=== PATIENT | female | born 1955 | race Caucasian/White ===

== ENCOUNTER 2019-05-03 00:58 | Inpatient (IN) | payer OTHER ==
[~2019-05-03] VITALS: Ht 157.5 cm; Wt 74.9 kg
[2019-05-03 01:15] LABS: Basophils # (auto) 0.1 uL; Eosinophils # (auto) 0.3 uL; Eosinophils % (auto) 2.4 % (0.0-7.0); Hematocrit 47.4 % (36.0-46.0); Hemoglobin 16.1 g/dL (12.2-16.2); Lymphocytes # (auto) 2.9 uL; Lymphocytes % (auto) 21.9 % (10.0-50.0); Mean Corpuscular Hemoglobin 32.2 pg (28.0-32.0); Mean Corpuscular Hgb Conc. 33.9 g/dL (32.0-36.0); Monocytes # (auto) 0.9 uL; Monocytes % (auto) 6.6 % (0.0-12.0); Neutrophils % (auto) 68.1 % (37.0-80.0); Platelet Count (auto) 214 10^3/uL (140-450); Red Blood Cells 4.99 10^6/uL (4.0-5.20); Red Cell Distribution Width 13.1 % (11.8-14.3); White Blood Cell 13.2 10^3/uL (4.4-10.8)
[2019-05-03 01:35] LABS: Albumin 4.1 g/dL (3.4-5.0); Calcium 10.1 mg/dL (8.5-10.1); Potassium 3.7 mmol/L (3.5-5.1)
[2019-05-03 01:41] LABS: Bilirubin, Total 0.9 mg/dL (0.2-1.0); Total Protein 7.8 g/dL (6.4-8.2)
[2019-05-03] MEDS ORDERED: MORPHINE SULFATE 4 MG/ML SYR/VIAL IV ONE (03:15)
[2019-05-03] MEDS ORDERED: ONDANSETRON HCL 4 MG/2 ML VIAL IV ONE (03:15)
[2019-05-03] MEDS ORDERED: PIPERACILLIN-TAZOB 3.375GM 100 ML IV ONE (04:15)
[2019-05-03] MEDS ORDERED: SODIUM CHLORIDE 0.9% 500 ML IV ONE (05:00)
[2019-05-03] MEDS ORDERED: MORPHINE SULF INJ 2 MG/ML SYRINGE 1ML IV PRN (05:15)
[2019-05-03] MEDS ORDERED: NITROGLYCERIN 0.4 MG SL TAB SL PRN (05:15)
[2019-05-03] MEDS ORDERED: hydrALAZINE HCL 20 MG/ML VL IV PRN (05:15)
[2019-05-03] MEDS: SODIUM CHLORIDE 0.9% 1,000 ML IV SCH ×2 (05:37→16:22)
[2019-05-03] MEDS: ONDANSETRON HCL 4 MG/2 ML VIAL IV PRN ×2 (05:47→12:20)
[2019-05-03] MEDS: MORPHINE SULFATE 4 MG/ML SYR/VIAL IV PRN ×2 (07:44→12:20)
[2019-05-03] MEDS ORDERED: GASTROGRAFIN 120 ML SOL ONE (07:59)
[2019-05-03 10:00] VITALS: BP 140/92
[2019-05-03] MEDS ORDERED: PANTOPRAZOLE 40 MG/10 ML VIAL INJ IV SCH (10:00)
--- NOTE | 2019-05-03 10:00 | NUR ---
Telemetry admit from ER [facility] admitted to Telemetry unit after SBAR received. Patient oriented to ANIVAL ESQUIVEL, primary RN, unit, room, bed, and unit policies regarding patient care and visiting hours. Patient now on continuous telemetry monitoring, tele box # [id number] and telemetry reading on arrival to unit is . Patient placed on bedside oxygen, weighed by bed scale and encouraged to call if they need something. All questions and concerns addressed, patient verbalized understanding.
--- NOTE | 2019-05-03 12:00 | NUR ---
Dr. Renee at bedside.
[2019-05-03 13:14] VITALS: BP 128/82
--- NOTE | 2019-05-03 16:56 | NUR ---
Dr. Thompson at bedside.
--- NOTE | 2019-05-03 17:00 | NUR ---
Per Dr. Thompson as soon as small bowel series report there in a computer, need to call Dr. Garcia for a report. Will endorse to night custodian.
[2019-05-03 17:04] VITALS: BP 134/80
--- NOTE | 2019-05-03 18:03 | NUR ---
Dr. Garcia paged regarding small bowel series x-ray resulted. Awaiting to call back.
--- NOTE | 2019-05-03 19:16 | NUR ---
Received a call from Jared STOREY with new orders, noted and carried out.
--- NOTE | 2019-05-03 19:30 | NUR ---
Opening Shift Note Assumed care of patient, awake and alert. Family at bedside. New orders for LIS to NG carried out and new IV fluids infusing. IV patent to left AC. Very pleasant. No S/S of distress/SOB. Pain 3/10 to abdomen, tolerable per patient.Slight anxiety noted regarding mass on kidney. Following up with Dr. head outpatient Instructed on POC and to call for assist PRN, will continue to monitor for changes Q1hr and PRN.
[2019-05-03] MEDS: SOD CHL 0.9%/ KCL 20MEQ 1,000 ML IV SCH (20:00)
[2019-05-03 21:42] VITALS: BP 141/96
[2019-05-04] MEDS: SODIUM CHLORIDE 0.9% 1,000 ML IV SCH (03:29)
[2019-05-04 04:17] LABS: Urine Bacteria FEW /hpf (None Seen); Urine Blood Negative /uL (Negative); Urine Mucus FEW (None Seen); Urine Specific Gravity 1.033 (1.001-1.035); Urine WBC 13 /hpf (0 - 5)
[2019-05-04 04:56] VITALS: BP 140/85
--- NOTE | 2019-05-04 07:00 | NUR ---
Spoke with Dr. Garcia regarding results of small bowel series. He will be in today. Updatedn patient as well. Verbalized feeling much better now. Had diarrhea since around 0100. Large amounts of soft stool multiple times last night. NG not putting out hardly anything while on suction. No pain meds given. Tolerated pain at 3/10 all night
[2019-05-04 07:08] LABS: Potassium 4.1 mmol/L (3.5-5.1)
[2019-05-04 07:15] LABS: Basophils # (auto) 0 uL; Basophils % (auto) 0.6 % (0.0-2.0); Eosinophils # (auto) 0.2 uL; Eosinophils % (auto) 2.3 % (0.0-7.0); Hematocrit 41.1 % (36.0-46.0); Hemoglobin 13.6 g/dL (12.2-16.2); Lymphocytes # (auto) 1.5 uL; Lymphocytes % (auto) 20.1 % (10.0-50.0); Mean Corpuscular Hgb Conc. 33.1 g/dL (32.0-36.0); Mean Corpuscular Volume 96.6 fL (80.0-100.0); Monocytes # (auto) 0.5 uL; Monocytes % (auto) 7.2 % (0.0-12.0); Neutrophils # (auto) 5.2 uL; Neutrophils % (auto) 69.8 % (37.0-80.0); Platelet Count (auto) 167 10^3/uL (140-450); Red Blood Cells 4.25 10^6/uL (4.0-5.20); Red Cell Distribution Width 13.3 % (11.8-14.3); White Blood Cell 7.4 10^3/uL (4.4-10.8)
[2019-05-04 07:30] LABS: Albumin 3.2 g/dL (3.4-5.0); BUN/Creatinine Ratio 19.5; Bilirubin, Total 0.8 mg/dL (0.2-1.0); Calcium 8.1 mg/dL (8.5-10.1); Total Protein 6.2 g/dL (6.4-8.2)
[2019-05-04 09:00] VITALS: BP 138/73
[2019-05-04] MEDS: SOD CHL 0.9%/ KCL 20MEQ 1,000 ML IV SCH (09:20)
[2019-05-04] MEDS: FAMOTIDINE (10MG/ML) 2ML VL IV SCH (09:20)
--- NOTE | 2019-05-04 09:42 | NUR ---
Dr. Thompson at bedside.
[2019-05-04] MEDS: D5W/SOD CHL 0.45% 1,000 ML IV SCH ×2 (10:10→23:02)
[2019-05-04 13:00] VITALS: BP 149/82
--- NOTE | 2019-05-04 13:09 | NUR ---
Dr. Garcia paged regarding plan of cares, awaiting to call back.
--- NOTE | 2019-05-04 14:06 | NUR ---
Dr. Garcia at bedside, received new orders, noted and carried it out.
--- NOTE | 2019-05-04 14:07 | NUR ---
Dr. Donna wright regarding dr. Garcia wants to keep patient for tonight, awaiting to call back.
--- NOTE | 2019-05-04 14:23 | NUR ---
D/C held regarding dr. Garcia wants patient to stay tonight.
--- NOTE | 2019-05-04 14:33 | NUR ---
Received a call from dr. Thompson , received new orders as follow BMP tomorrow and D/C held. Noted and carried it out.
[2019-05-04 17:00] VITALS: BP 156/88
--- NOTE | 2019-05-04 19:30 | NUR ---
Opening Shift Note Assumed care of patient, awake and alert. at bedside. Patient in good spirits. No S/S of distress/SOB or pain. Instructed on POC and to call for assist PRN, will continue to monitor for changes Q1hr and PRN.
[2019-05-04 22:00] VITALS: BP 156/81
[2019-05-05 05:15] VITALS: BP 141/76
[2019-05-05 06:54] LABS: BUN/Creatinine Ratio 9.9; Calcium 8.8 mg/dL (8.5-10.1); Potassium 3.6 mmol/L (3.5-5.1)
--- NOTE | 2019-05-05 07:30 | NUR ---
Opening Shift Note Assumed care of patient, awake and alert. No S/S of distress/SOB or pain. Instructed on POC and to call for assist PRN, will continue to monitor for changes Q1hr and PRN.
--- NOTE | 2019-05-05 07:32 | NUR ---
Endorsed care to Lauren JANSEN. Patient awake and watching TV. Slept good per patient
[2019-05-05 09:00] VITALS: BP 154/84
--- NOTE | 2019-05-05 09:05 | NUR ---
Dr. Garcia paged regarding diet order, awaiting to call back.
--- NOTE | 2019-05-05 09:50 | NUR ---
Received a call from Dr. Garcia with new orders as follow : to increase diet as tolerated and patient is cleared to go home. Patient notified.
[2019-05-05] MEDS: FAMOTIDINE (10MG/ML) 2ML VL IV SCH (09:59)
[2019-05-05] MEDS: D5W/SOD CHL 0.45% 1,000 ML IV SCH (09:59)
--- NOTE | 2019-05-05 10:00 | NUR ---
Dr. Thompson at bedside.
[2019-05-05 13:30] VITALS: BP 138/73
--- NOTE | 2019-05-05 13:54 | NUR ---
Discharge instructions given as ordered. Encourage to follow up with PMD (Follow up with PCP in 1-[address] Aram parker #[phone] Address : [address] [place] [address], [id number] Follow up with ANNETTE Flores in 1 week [id number] [facility] [address] , [place] [address] )as instructed. All questions and concerns addressed. Patient verbalized understanding. Medication reconciliation form completed and copy given to patient. IV removed with catheter intact, pressure dressing applied. Telemetry unit returned to [facility]. Patient taken to vehicle via wheelchair with all personal belongings, accompanied by staff and family member. No distress noted at time of departure.
== END 2019-05-05 13:55 | disposition home or self-care (01) | DRG 389 ==
LOC: ER 01:01 → TELE 01:02 → TELE-WESTW 09:00
PROVIDERS: ADMIT Nurse Practitioner; ATTEND Internal Medicine
PROC: 0D9670Z Drainage of Stomach with Drainage Device, Via Natural or Artificial Opening (ICD-10-PCS; principal; 2019-05-03)
DX: K56.600 Partial intestinal obstruction, unspecified as to cause (principal); E87.0 Hyperosmolality and hypernatremia; E87.1 Hypo-osmolality and hyponatremia; N28.89 Other specified disorders of kidney and ureter; I10 Essential (primary) hypertension; E88.09 Other disorders of plasma-protein metabolism, not elsewhere classified; D72.829 Elevated white blood cell count, unspecified; K76.0 Fatty (change of) liver, not elsewhere classified; Z90.49 Acquired absence of other specified parts of digestive tract; Z79.899 Other long term (current) drug therapy
CPT/HCPCS: 36415; 74177; 74250; 76775; 80048; 80053; 81001; 83690; 84484; 85025; 87040; 93005; 94761; 96361; 96365; 96375; G0378; J2405; J2543; J3490